=== PATIENT | female | born 1995 | race Caucasian/White ===

== ENCOUNTER 2022-11-10 09:59 | Emergency (ER) | payer OTHER ==
[~2022-11-10] VITALS: Ht 185.4 cm; Wt 128.0 kg
[2022-11-10 10:11] VITALS: BP 123/89
== END 2022-11-10 11:24 | disposition home or self-care (01) ==
LOC: ER 10:00
DX: S06.0X0A Concussion without loss of consciousness, initial encounter (principal); W19.XXXA Unspecified fall, initial encounter; Y93.89 Activity, other specified; Y92.89 Other specified places as the place of occurrence of the external cause; Y99.8 Other external cause status
CPT/HCPCS: 99282